=== PATIENT | male | born 1995 | race Caucasian/White ===

== ENCOUNTER 2018-04-27 08:53 | Emergency (ER) | payer OTHER ==
[2018-04-27] MEDS: LORAZEPAM 1 MG TAB PO ×2 (09:16→09:39)
== END 2018-04-27 10:58 | disposition home or self-care (01) ==
LOC: E/R 08:53
DX: F41.9 Anxiety disorder, unspecified (principal); F15.10 Other stimulant abuse, uncomplicated
CPT/HCPCS: 99283; Z7502